=== PATIENT | male | born 1980 | race Caucasian/White ===

== ENCOUNTER 2017-09-18 14:43 | Emergency (ER) | payer OTHER, SELFPAY ==
[2017-09-18 14:53] VITALS: RESP 18; O2SAT 99
[2017-09-18] MEDS ORDERED: Sodium Chloride 0.9% 1,000 ML IV STA (15:07)
--- NOTE | 2017-09-18 15:09 | ED PDOC ---
HPI: Male Pain Time Seen by Provider: 09/18/17 15:07 Chief Complaint (Nursing): Male Genitourinary Chief Complaint (Provider): ABD PAIN History Per: Patient (36 Y/O MALE HERE FOR EVALUATION OF LEFT FLANK PAIN THAT BEGAN 1 PM TODAY WHILE SWIMMING. NOTES PAIN GRADUALLY WORSENING NOW ASSOCIATED WITH VOMITING. DENIES ANY DIARRHEA/FEVERS/CHILLS; DENIES ANY DYSURIA/HEMATURIA /URINARY FREQUENCY. DENIES ANY SURGICAL HX.) Past Medical History Reviewed: Historical Data, Nursing Documentation, Vital Signs Vital Signs: Last Vital Signs Temp 98 F 09/18/17 14:50 Pulse 66 09/18/17 14:50 Resp 18 09/18/17 14:50 BP 146/95 H 09/18/17 14:50 Pulse Ox 99 09/18/17 14:50 - Medical History PMH: Denies: HIV, Chronic Kidney Disease - Family History Family History: States: [place] (paternal at age 60) - Immunization History Hx Tetanus Toxoid Vaccination: No Hx Influenza Vaccination: No Hx Pneumococcal Vaccination: No - Home Medications Home Medications: Ambulatory Orders Medication Instructions Recorded Ciprofloxacin HCl [Cipro] 500 mg PO BID #14 tablet 09/18/17 Ibuprofen [Motrin] 600 mg PO Q8 PRN #21 tab 09/18/17 Ondansetron [Zofran Odt] 4 mg PO Q8 PRN #10 odt 09/18/17 Tamsulosin HCl [Flomax] 0.4 mg PO DAILY #10 cap.er.24h 09/18/17 oxyCODONE/Acetaminophen [Percocet 1 ea PO Q6 PRN #10 tab 09/18/17 5/325 mg Tab] - Allergies Allergies/Adverse Reactions: Allergies Allergy/AdvReac Type Severity Reaction Status Date / Time No Known Allergies Allergy Verified 09/18/17 14:57 Review of Systems ROS Statement: Except As Marked, All Systems Reviewed And Found Negative Physical Exam - Reviewed Nursing Documentation Reviewed: Yes Vital Signs Reviewed: Yes - Physical Exam Appears: Positive for: Well, Non-toxic, No Acute Distress Head Exam: Positive for: ATRAUMATIC, NORMAL INSPECTION, NORMOCEPHALIC Skin: Positive for: Normal Color, Warm, DRY Eye Exam: Positive for: EOMI, Normal appearance, PERRL ENT: Positive for: Normal ENT Inspection Neck: Positive for: Normal, Painless ROM Cardiovascular/Chest: Positive for: Regular Rate, Rhythm Respiratory: Positive for: CNT, Normal Breath Sounds Gastrointestinal/Abdominal: Positive for: Normal Exam, Soft, Tenderness (LUQ/ LEFT FLANK) Back: Positive for: Normal Inspection, L CVA Tenderness Extremity: Positive for: Normal ROM Neurologic/Psych: Positive for: Alert, Oriented - Laboratory Results Result Diagrams: 09/18/17 15:20 09/18/17 15:20 - ECG O2 Sat by Pulse Oximetry: 99 - Progress ED Course And Treament: CT abd/pelvis: IMPRESSION: Mild left obstructive uropathy caused by 0.3 cm calculus at the level of L4. Several additional nonobstructing left renal calculi. Thank you for allowing us to participate in the care of your patient. Dictated and Authenticated by: Rachana Garcia MD 09/18/2017 4:49 PM Eastern Time ([place] & [place]) toradol 15 mg iv x 1 dose Zofran 4 mg odt x 1 dose Flomax 0.4mg x 1 dose NS 1 liter wide open. Disposition - Clinical Impression Clinical Impression: Renal colic - Patient ED Disposition Is Patient to be Admitted: No - Disposition Referrals: Scarlett Ruhs MD [Medical Doctor] - Disposition: Routine/Home Disposition Time: 18:26 Condition: FAIR Prescriptions: Ciprofloxacin HCl [Cipro] 500 mg PO BID #14 tablet Ibuprofen [Motrin] 600 mg PO Q8 PRN #21 tab PRN Reason: Pain, Moderate (4-7) Ondansetron [Zofran Odt] 4 mg PO Q8 PRN #10 odt PRN Reason: Nausea/Vomiting oxyCODONE/Acetaminophen [Percocet 5/325 mg Tab] 1 ea PO Q6 PRN #10 tab PRN Reason: Pain, Severe (8-10) Tamsulosin HCl [Flomax] 0.4 mg PO DAILY #10 cap.er.24h Instructions: Renal Colic (DC) Forms: [facility] ED School/Work Excuse Print Language: RUSSIAN
[2017-09-18 15:39] LABS: BASO # 0.1 K/uL (0.0-0.2); BASO % 0.4 % (0.0-2.0); EOS # 0.1 K/uL (0.0-0.7); EOS % 0.5 % (0.0-4.0); HEMOGLOBIN 15.1 g/dL (12.0-18.0); LYMPH # 1.4 K/uL (1.0-4.3); LYMPH % 11.1 % (20.0-40.0); MEAN CELL VOLUME 92.3 fl (80.0-94.0); MEAN CORPUSCULAR HEMOGLOBIN 30.9 pg (27.0-31.0); MEAN CORPUSCULAR HGB CONC 33.4 g/dL (33.0-37.0); MEAN PLATELET VOLUME 8.5 fl (7.2-11.7); MONO # 0.5 K/uL (0.0-0.8); MONO % 3.8 % (0.0-10.0); NEUT # 10.7 K/uL (1.8-7.0); NEUT % 84.2 % (50.0-75.0); RBC 4.89 Mil/uL (4.40-5.90); WHITE BLOOD COUNT 12.8 K/uL (4.8-10.8)
[2017-09-18 15:46] LABS: CALCIUM 9.4 mg/dL (8.4-10.2); GFR AFRICAN-AMERICAN > 60; GFR NON-AFRICAN AMERICAN > 60; LIPASE 63 U/L (23-300)
[2017-09-18 15:53] LABS: ALB/GLOB RATIO 1.2 (1.0-2.1); ALBUMIN 4.5 g/dL (3.5-5.0); ALT/SGPT 31 U/L (21-72); AST/SGOT 48 U/L (17-59); BLOOD UREA NITROGEN 17 mg/dl (9-20)
[2017-09-18 16:14] LABS: URINE BILIRUBIN NEGATIVE (NEGATIVE); URINE BLOOD LARGE (NEGATIVE); URINE CLARITY CLOUDY (Clear); URINE COLOR YELLOW (YELLOW); URINE GLUCOSE (UA) NEG (Normal); URINE LEUKOCYTE ESTERASE NEG Leu/uL (Negative); URINE PROTEIN 30 mg/dL (NEGATIVE); URINE UROBILINOGEN 0.2-1.0 mg/dL (0.2-1.0)
[2017-09-18 18:50] VITALS: BP 140/89; PULSE 64; TEMP 98.7
--- NOTE | 2017-09-19 08:34 | CT ---
PROCEDURE: CT Abdomen and Pelvis without intravenous contrast HISTORY: R/O KIDNEY STONE COMPARISON: None. TECHNIQUE: Without contrast.. Contrast dose: 0 Radiation dose: Total exam DLP = 517.61 mGy-cm. This CT exam was performed using one or more of the following dose reduction techniques: Automated exposure control, adjustment of the mA and/or kV according to patient size, and/or use of iterative reconstruction technique. FINDINGS: LOWER THORAX: Unremarkable. LIVER: Unremarkable. No gross lesion or ductal dilatation. GALLBLADDER AND BILE DUCTS: Unremarkable. PANCREAS: Unremarkable. No gross lesion or ductal dilatation. SPLEEN: Unremarkable. ADRENALS: Unremarkable. No mass. KIDNEYS AND URETERS: Minimal left hydronephrosis. Proximal left ureteral 3 mm calculus. Bilateral incidental extrarenal renal pelvis. Multiple very small nonobstructing left renal calculi. No right renal or ureteral calculus. No renal mass. VASCULATURE: Unremarkable. No aortic aneurysm. BOWEL: Unremarkable. No obstruction. No gross mural thickening. APPENDIX: Unremarkable. Normal appendix. PERITONEUM: Unremarkable. No free fluid. No free air. LYMPH NODES: Unremarkable. No enlarged lymph nodes. BLADDER: Unremarkable. REPRODUCTIVE: Normal prostate BONES: Normal prostate OTHER FINDINGS: None. IMPRESSION: Obstructing 3 mm proximal left ureteral calculus with minimal left hydronephrosis. Multiple small nonobstructing left renal calculi. No additional abnormality. Preliminary interpretation of this examination was reported by [facility] at 4:49 p.m. on 09/18/2017. There is concurrence of this report with the preliminary interpretation.
== END 2017-09-18 18:51 | disposition home or self-care (01) ==
LOC: H.ER 14:43
DX: N13.2 Hydronephrosis with renal and ureteral calculous obstruction (principal)
CPT/HCPCS: 74176; 80053; 81003; 83690; 85025; 87086; 96361; 96374; 99284; J1885; J7030

== ENCOUNTER 2018-05-01 16:26 | Emergency (ER) | payer SELFPAY ==
[2018-05-01 17:32] VITALS: BP 127/75; PULSE 72; RESP 18; TEMP 98.1; O2SAT 100
--- NOTE | 2018-05-01 19:04 | ED PDOC ---
HPI: Abdomen Time Seen by Provider: 05/01/18 18:49 Chief Complaint (Nursing): Abdominal Pain History Per: Patient History/Exam Limitations: no limitations Onset/Duration Of Symptoms: Days (1) Current Symptoms Are (Timing): Better Severity: Moderate Pain Scale Rating Of: 4 Location Of Pain/Discomfort: LLQ, Other (Left flank pain) Associated Symptoms: denies: Fever, Chills, Nausea, Vomiting, Diarrhea, Urinary Symptoms Exacerbating Factors: None Alleviating Factors: None Last Bowel Movement: Today Additional History Per: Patient Additional Complaint(s): Patient presenting with left flank pain since this am. Radiated to LLQ pain. Denies any chest pain, dysuria, or fevers. Reports similar to previous hx of kidney stones. Past Medical History Reviewed: Historical Data, Nursing Documentation, Vital Signs Vital Signs: Last Vital Signs Temp 98.1 F 05/01/18 17:31 Pulse 72 05/01/18 17:31 Resp 18 05/01/18 17:31 BP 127/75 05/01/18 17:31 Pulse Ox 100 05/01/18 17:31 - Medical History PMH: Denies: HIV, Chronic Kidney Disease Other PMH: Nephrolothiasis - Surgical History Surgical History: No Surg Hx - Family History Family History: States: [place] (paternal at age 60) - Immunization History Hx Tetanus Toxoid Vaccination: No Hx Influenza Vaccination: No Hx Pneumococcal Vaccination: No - Home Medications Home Medications: Ambulatory Orders Medication Instructions Recorded Ibuprofen [Motrin] 600 mg PO Q8 PRN #21 tab 09/18/17 Ondansetron [Zofran Odt] 4 mg PO Q8 PRN #10 odt 09/18/17 Ciprofloxacin HCl [Cipro] 500 mg PO BID #14 tablet 05/01/18 Tamsulosin HCl [Flomax] 0.4 mg PO DAILY #10 cap.er.24h 05/01/18 oxyCODONE/Acetaminophen [Percocet 1 ea PO Q6 PRN #10 tab 05/01/18 5/325 mg Tab] - Allergies Allergies/Adverse Reactions: Allergies Allergy/AdvReac Type Severity Reaction Status Date / Time No Known Allergies Allergy Verified 05/01/18 17:31 Review of Systems ROS Statement: Except As Marked, All Systems Reviewed And Found Negative Physical Exam - Reviewed Nursing Documentation Reviewed: Yes Vital Signs Reviewed: Yes - Physical Exam Appears: Positive for: Non-toxic, No Acute Distress Head Exam: Positive for: ATRAUMATIC, NORMAL INSPECTION Skin: Positive for: Normal Color, Warm Eye Exam: Positive for: EOMI ENT: Positive for: Normal ENT Inspection Cardiovascular/Chest: Positive for: Regular Rate, Rhythm Respiratory: Positive for: Normal Breath Sounds. Negative for: Respiratory Distress Gastrointestinal/Abdominal: Positive for: Soft, Tenderness (LLQ ). Negative for: Distended, Guarding, Rebound Back: Positive for: L CVA Tenderness. Negative for: R CVA Tenderness Extremity: Positive for: Normal ROM Neurologic/Psych: Positive for: Alert, Oriented - Laboratory Results Result Diagrams: 05/01/18 19:37 05/01/18 19:37 - ECG O2 Sat by Pulse Oximetry: 100 - Progress Re-evaluation Time: 23:34 Condition: Re-examined, Improved Medical Decision Making Medical Decision Making: Impression Left flank pain Diff include Left renal colic with nephrolithiasis, UTI Plan Labs CT abdomen UA Toradol IV reassess Time: 2135 CT RESULTS FINDINGS: LUNG BASES: The lung bases appear clear. No pleural effusions are seen. LIVER: There is slight hepatomegaly. The liver measured approximately 16.8 cm in the midclavicular line. GALLBLADDER AND BILE DUCTS: The gallbladder appears within normal limits. No radioopaque gallstones are seen. No biliary ductal dilatation is evident. PANCREAS: Unremarkable. SPLEEN: Unremarkable. ADRENAL GLANDS: Unremarkable. KIDNEYS, URETERS, AND BLADDER: Both kidneys are normal in size and position. A punctate non-obstructing calculus is seen in the mid right renal pole. Multiple punctate non-obstructing calculi are scattered within the left kidney. An approximately 2.5 mm obstructing calculus is seen within the proximal left ureter. This creates associated mild-moderate left hydronephrosis with left perinephric stranding. The urinary bladder is normal in size and configuration. STOMACH AND BOWEL: Some mucosal wall thickening is seen in the lower esophagus at the esophagogastric junction which may indicate reflux esophagitis. Unremarkable appearance of the stomach. No evidence of bowel obstruction. No evidence suggesting enteritis or colitis. APPENDIX: No evidence of acute appendicitis on CT examination. PERITONEUM: No free fluid. No free air. LYMPH NODES: No lymphadenopathy is evident. REPRODUCTIVE: Unremarkable as visualized. VASCULATURE: No evidence of abdominal aortic aneurysm. BONES: No aggressive appearing osseous lesion. No acute osseous pathology evident. Vacuum disc phenomenon and mild disc interspace narrowing are noted at L5-S1 consistent with some degenerative disc disease. IMPRESSION: 1. An obstructing 2.5 mm calculus is noted within the proximal left ureter. This creates associated mild-moderate left hydronephrosis and perinephric stranding. 2. Multiple punctate non-obstructing calculi scattered within the left kidney and solitary punctate nonobstructing calculus in the mid right renal pole. 3. Evidence of reflux esophagitis at the esophagogastric junction. 4. Evidence of some degenerative disc disease at L5-S1. [address] Galvez who recommends KUB xray and discharge if patient is pain free. Also recommends flomax and cipro and follow up. Patient has no pain and wishes to go home. Instructed to return within 24 hours of pain continues and follow up with urologist. Electronically signed on May 01, 2018 8:36:25 PM EST by: Manuel Gill M.D., MBA Certified By ABR & CBCCT Fellowship Trained MRI and CT Specialist Disposition - Clinical Impression Clinical Impression: Renal colic, Left ureteral stone - Patient ED Disposition Is Patient to be Admitted: No Doctor Will See Patient In The: Office Counseled Patient/Family Regarding: Studies Performed, Diagnosis, Need For Followup - Disposition Referrals: [facility] [place] [Outside] Jaren Galvez MD [Medical Doctor] - Disposition: Routine/Home Disposition Time: 23:38 Condition: GOOD Additional Instructions: RETA OLIVER, thank you for letting us take care of you today. Your provider was Jonathon Overton MD and you were treated for ABD PAIN. The emergency medical care you received today was directed at your acute symptoms. If you were prescribed any medication, please fill it and take as directed. It may take several days for your symptoms to resolve. Return to the Emergency Department if your symptoms worsen, do not improve, or if you have any other problems. Please contact your doctor or call one of the physicians/clinics you have been referred to that are listed on the Patient Visit Information form that is included in your discharge packet. Bring any paperwork you were given at discharge with you along with any medications you are taking to your follow up visit. Our treatment cannot replace ongoing medical care by a primary care provider outside of the emergency department. Thank you for allowing the [facility] team to be part of your care today. If you had an X-Ray or CT scan: A Radiologist will review the ED reading if any change in treatment is needed we will contact you. If you had a blood, urine, or wound culture: It will take several days for the results, if any change in treatment is needed we will contact you. If you had an STI test: It will take 48 hours for the results. Please call after 1 week if you have not heard back. Prescriptions: Ciprofloxacin HCl [Cipro] 500 mg PO BID #14 tablet oxyCODONE/Acetaminophen [Percocet 5/325 mg Tab] 1 ea PO Q6 PRN #10 tab PRN Reason: Pain, Severe (8-10) Tamsulosin HCl [Flomax] 0.4 mg PO DAILY #10 cap.er.24h Instructions: Renal Colic Forms: [employer] ([employer]) Print Language: PORTUGUESE
[2018-05-01 19:52] LABS: BASO % 0.3 % (0.0-2.0); HEMOGLOBIN 14.7 g/dL (12.0-18.0); MEAN CELL VOLUME 90.6 fl (80.0-94.0); MEAN CORPUSCULAR HEMOGLOBIN 30.3 pg (27.0-31.0); MEAN CORPUSCULAR HGB CONC 33.4 g/dL (33.0-37.0); MEAN PLATELET VOLUME 8.2 fl (7.2-11.7); MONO # 0.5 K/uL (0.0-0.8); MONO % 3.6 % (0.0-10.0); NEUT # 12.2 K/uL (1.8-7.0); NEUT % 89.1 % (50.0-75.0); NRBC % 0.2 % (0.0-0.0); PLATELET COUNT 274 K/uL (130-400); RBC 4.86 Mil/uL (4.40-5.90); RED CELL DISTRIBUTION WIDTH 12.9 % (11.5-14.5); WHITE BLOOD COUNT 13.7 K/uL (4.8-10.8)
[2018-05-01 21:07] LABS: BANDS 1 % (0-2); EOSINOPHIL 1 % (0-7); LYMPHOCYTE 7 % (20-50); MONOCYTE 5 % (0-10); NEUTROPHIL 86 % (42-75); PLATELET ESTIMATE NORMAL (NORMAL); TOTAL CELLS COUNTED 100
[2018-05-01 21:37] LABS: SQUAMOUS EPITHIAL < 1 /hpf (0-5); URINE BILIRUBIN NEGATIVE (NEGATIVE); URINE CLARITY CLEAR (Clear); URINE COLOR YELLOW (YELLOW); URINE GLUCOSE (UA) NEG (NEGATIVE); URINE LEUKOCYTE ESTERASE NEG Leu/uL (Negative); URINE PROTEIN NEGATIVE (NEGATIVE); URINE UROBILINOGEN 0.2-1.0 mg/dL (0.2-1.0)
[2018-05-01 21:40] LABS: URINE BLOOD SMALL (NEGATIVE)
[2018-05-01] MEDS ORDERED: cefTRIAXone (Rocephin) 1 gm Inj IM ONE (23:07)
--- NOTE | 2018-05-02 08:36 | RAD ---
Date of service: 05/01/2018 HISTORY: left flank pain COMPARISON: Unenhanced abdomen and pelvis CT 05/01/2018. FINDINGS: BOWEL: Normal. No obstruction. No free air. BONES: Normal. OTHER FINDINGS: A small calcification is seen lateral to the left transverse process of the L4 vertebral body corresponding to obstructing calculus in the left ureter in abdomen pelvis CT 05/01/2018. Calculus appears not significantly changed in position. No additional radiodense urolithiasis identified in the abdomen though phlebolith like calcifications identified at the inferior pelvis soft tissue, also identified in prior CT. IMPRESSION: Small calculus identified lateral to the left L4 transverse process corresponding to mid left ureteral calculus obstructing left kidney and ureter, not significantly changed in position. Nonobstructive bowel gas pattern.
--- NOTE | 2018-05-02 12:58 | CT ---
Date of service: 05/01/2018 PROCEDURE: CT Abdomen and Pelvis without intravenous contrast HISTORY: left flank pain LLQ pain COMPARISON: Abdomen pelvis CT without contrast 09/18/2017. TECHNIQUE: Helical CT of the abdomen and pelvis was performed without oral or intravenous contrast as per referring physician request. Coronal and sagittal reformats were generated. Contrast dose: None Radiation dose: Total exam DLP = 505.45 mGy-cm. This CT exam was performed using one or more of the following dose reduction techniques: Automated exposure control, adjustment of the mA and/or kV according to patient size, and/or use of iterative reconstruction technique. FINDINGS: LOWER THORAX: Unremarkable. LIVER: Unremarkable. No gross lesion or ductal dilatation. GALLBLADDER AND BILE DUCTS: Unremarkable. PANCREAS: Unremarkable. No gross lesion or ductal dilatation. SPLEEN: Unremarkable. ADRENALS: Unremarkable. No mass. KIDNEYS AND URETERS: [id number] left hydroureteronephrosis is identified caused by a 3.5 mm calculus obstructing the proximal left ureter at the upper L4 level of the left ureter. A slightly smaller calculus was identified in nearly the same location of the left ureter on 09/18/[address] Presumably this is a recurrent obstruction although chronic obstruction is not completely excluded. Moderate left perinephric reaction is identified. A punctate intrarenal calculus identified at the upper pole as well as midpole right kidney and possibly also a additional focus at the lower pole. There multiple punctate intrarenal calculi identified the upper mid lower pole left kidney number at least 4-5. VASCULATURE: Unremarkable. No aortic aneurysm. No aortic atherosclerotic calcification or mural plaque present. BOWEL: A moderate amount of retained fecal material is seen at the proximal and mid large-bowel segments with a minimal volume at the distal segment. No small or large bowel obstruction appreciable. No suspicious acute bowel findings. APPENDIX: Unremarkable. Normal appendix. PERITONEUM: Unremarkable. No free fluid. No free air. LYMPH NODES: Unremarkable. No enlarged lymph nodes. BLADDER: Urinary bladder is mildly distended with a thin smooth wall. No radiodense urolithiasis associated. REPRODUCTIVE: Unremarkable. BONES: Minimal spondylolisthesis L5 posterior to S1, degenerative. No spondylolysis identified. OTHER FINDINGS: None. IMPRESSION: 1. 3.5 mm calculus obstructs the proximal left ureter at the L4 level causing [id number] left hydroureteronephrosis. Similar presentation on prior CT 09/18/2017 though this is likely recurrence rather than chronic. Clinically correlate further. 2. Multiple punctate intrarenal calculi scattered at the left greater than right kidney, nonobstructive. No right-sided obstructive uropathy. 3. Distended but otherwise unremarkable appearing urinary bladder. Preliminary report provided by Bhavin, 05/01/2018, 8:26 p.m..
== END 2018-05-01 23:46 | disposition home or self-care (01) ==
LOC: H.ER 16:26
DX: N13.2 Hydronephrosis with renal and ureteral calculous obstruction (principal); K21.0 Gastro-esophageal reflux disease with esophagitis
CPT/HCPCS: 74018; 74176; 80048; 81003; 85025; 96372; 96374; 99283; J0696; J1885

== ENCOUNTER 2018-05-06 09:41 | Emergency (ER) | payer OTHER ==
[2018-05-06 09:44] VITALS: PULSE 70; RESP 18
[2018-05-06] MEDS ORDERED: Sodium Chloride 0.9% 1,000 ML IV STA (10:34)
[2018-05-06 11:21] LABS: BASO % 0.7 % (0.0-2.0); EOS # 0.1 K/uL (0.0-0.7); EOS % 1.1 % (0.0-4.0); HEMOGLOBIN 14.1 g/dL (12.0-18.0); LYMPH # 1.4 K/uL (1.0-4.3); LYMPH % 20.1 % (20.0-40.0); MEAN CELL VOLUME 90.6 fl (80.0-94.0); MEAN CORPUSCULAR HGB CONC 34.2 g/dL (33.0-37.0); MEAN PLATELET VOLUME 8.3 fl (7.2-11.7); MONO # 0.7 K/uL (0.0-0.8); MONO % 10.2 % (0.0-10.0); NEUT # 4.8 K/uL (1.8-7.0); NEUT % 67.9 % (50.0-75.0); NRBC % 0.1 % (0.0-0.0); RBC 4.55 Mil/uL (4.40-5.90); RED CELL DISTRIBUTION WIDTH 12.4 % (11.5-14.5); WHITE BLOOD COUNT 7.1 K/uL (4.8-10.8)
[2018-05-06 11:27] LABS: ALB/GLOB RATIO 1.3 (1.0-2.1); ALBUMIN 4.5 g/dL (3.5-5.0); CALCIUM 9.7 mg/dL (8.4-10.2)
[2018-05-06 12:55] LABS: SQUAMOUS EPITHIAL 2 /hpf (0-5); URINE BACTERIA OCC (<OCC); URINE BILIRUBIN NEGATIVE (NEGATIVE); URINE BLOOD SMALL (NEGATIVE); URINE CLARITY CLEAR (Clear); URINE COLOR YELLOW (YELLOW); URINE GLUCOSE (UA) NEG (NEGATIVE); URINE LEUKOCYTE ESTERASE NEG Leu/uL (Negative); URINE PROTEIN NEGATIVE (NEGATIVE); URINE UROBILINOGEN 0.2-1.0 mg/dL (0.2-1.0)
--- NOTE | 2018-05-06 14:15 | ED PDOC ---
HPI: Abdomen Time Seen by Provider: 05/06/18 10:31 Chief Complaint (Nursing): Abdominal Pain Chief Complaint (Provider): Flank Pain (recurrent) History Per: Patient History/Exam Limitations: no limitations Onset/Duration Of Symptoms: Days (five to six ) Outside of [place] travel?: No Current Symptoms Are (Timing): Still Present Severity: Mild Location Of Pain/Discomfort: Other (left flank pain) Additional Complaint(s): Pt presents the second time complaining of flank pain which is attributable to a renal stone; pt was given pain medication, a referral to a urologist and a urine hat/strainer. Pt presents today compaining of continuing pain for which he no longer has pain medication. Pt is still passing urine and denie hematuria, NVD and fever Past Medical History Reviewed: Historical Data, Nursing Documentation, Vital Signs Vital Signs: Last Vital Signs Temp 98.4 F 05/06/18 09:43 Pulse 70 05/06/18 09:43 Resp 18 05/06/18 09:43 BP 152/91 H 05/06/18 09:43 Pulse Ox 99 05/06/18 09:43 - Medical History PMH: Denies: HIV, Chronic Kidney Disease - Family History Family History: States: Unknown Family Hx, [place] (paternal at age 60) - Immunization History Hx Tetanus Toxoid Vaccination: No Hx Influenza Vaccination: No Hx Pneumococcal Vaccination: No - Home Medications Home Medications: Ambulatory Orders Medication Instructions Recorded Ibuprofen [Motrin] 600 mg PO Q8 PRN #21 tab 09/18/17 Ondansetron [Zofran Odt] 4 mg PO Q8 PRN #10 odt 09/18/17 Ciprofloxacin HCl [Cipro] 500 mg PO BID #14 tablet 05/01/18 Tamsulosin HCl [Flomax] 0.4 mg PO DAILY #10 cap.er.24h 05/01/18 oxyCODONE/Acetaminophen [Percocet 1 ea PO Q6 PRN #10 tab 05/01/18 5/325 mg Tab] oxyCODONE/Acetaminophen [Percocet 1 tab PO PRN PRN #4 tab 05/06/18 5/325 mg Tab] - Allergies Allergies/Adverse Reactions: Allergies Allergy/AdvReac Type Severity Reaction Status Date / Time No Known Allergies Allergy Verified 05/06/18 10:16 Review of Systems Musculoskeletal: Positive for: Back Pain Physical Exam - Reviewed Nursing Documentation Reviewed: Yes - Physical Exam Appears: Positive for: Well, No Acute Distress, Uncomfortable Head Exam: Positive for: ATRAUMATIC, NORMAL INSPECTION Skin: Positive for: Normal Color, Warm, Dry. Negative for: Diaphoresis, Pallor, Rash Eye Exam: Positive for: Normal appearance, PERRL. Negative for: Nystagmus, Periorbital swelling, Periorbital tenderness ENT: Positive for: Normal ENT Inspection Neck: Positive for: Normal, Painless ROM, Supple. Negative for: Decreased ROM Cardiovascular/Chest: Positive for: Regular Rate, Rhythm Respiratory: Positive for: Normal Breath Sounds Pulses-Carotid (L): 2+ Pulses-Carotid (R): 2+ Pulses-Radial (L): 2+ Pulses-Radial (R): 2+ Back: Positive for: Normal Inspection, L CVA Tenderness. Negative for: R CVA Tenderness - Laboratory Results Result Diagrams: 05/06/18 11:02 05/06/18 11:02 Lab Results: Total Bilirubin 0.7 mg/dl (0.2-1.3) 05/06/18 11:02 AST 34 U/L (17-59) 05/06/18 11:02 ALT 31 U/L (21-72) 05/06/18 11:02 Alkaline Phosphatase 93 U/L (38-126) 05/06/18 11:02 Total Protein 8.0 G/DL (6.3-8.2) 05/06/18 11:02 Albumin 4.5 g/dL (3.5-5.0) 05/06/18 11:02 Globulin 3.5 gm/dL (2.2-3.9) 05/06/18 11:02 Albumin/Globulin Ratio 1.3 (1.0-2.1) 05/06/18 11:02 Urine Color Yellow (YELLOW) 05/06/18 12:23 Urine Clarity Clear (Clear) 05/06/18 12:23 Urine pH 7.0 (5.0-8.0) 05/06/18 12:23 Ur Specific [place] 1.012 (1.003-1.030) 05/06/18 12:23 Urine Protein Negative mg/dL (NEGATIVE) 05/06/18 12:23 Urine Glucose (UA) Neg mg/dL (NEGATIVE) 05/06/18 12:23 Urine Ketones Negative mg/dL (NEGATIVE) 05/06/18 12:23 Urine Blood Small (NEGATIVE) 05/06/18 12:23 Urine Nitrate Negative (NEGATIVE) 05/06/18 12:23 Urine Bilirubin Negative (NEGATIVE) 05/06/18 12:23 Urine Urobilinogen 0.2-1.0 mg/dL (0.2-1.0) 05/06/18 12:23 Ur Leukocyte Esterase Neg Mando/uL (Negative) 05/06/18 12:23 Urine RBC (Auto) 8 /hpf (0-3) H 05/06/18 12:23 Urine Microscopic WBC 1 /hpf (0-5) 05/06/18 12:23 Ur Squamous Epith Cells 2 /hpf (0-5) 05/06/18 12:23 Urine Bacteria Occ (<OCC) H 05/06/18 12:23 - ECG O2 Sat by Pulse Oximetry: 99 Medical Decision Making Medical Decision Making: R/O Hydronephrosis P: US Renal for diagnostics Date of service: 05/06/2018 PROCEDURE: HISTORY: r/o hydro left side COMPARISON: TECHNIQUE: FINDINGS: The right left kidney measure 10.113.0 centimeters respectively. There is a 5 millimeter interpolar echogenic focus probably representing calculus. Mild left hydronephrosis. IMPRESSION: Mild left hydronephrosis. 5 millimeter probable right renal calculus.R/O As there is no hydronephrosis, pt will be discharged Pt is stable Disposition - Clinical Impression Clinical Impression: Abdominal discomfort, Stone in kidney - Patient ED Disposition Is Patient to be Admitted: No Doctor Will See Patient In The: Office Counseled Patient/Family Regarding: Diagnosis, Need For Followup, Rx Given - Disposition Referrals: Jaren Galvez MD [Medical Doctor] - Disposition: Routine/Home Disposition Time: 14:49 Condition: STABLE Prescriptions: oxyCODONE/Acetaminophen [Percocet 5/325 mg Tab] 1 tab PO PRN PRN #4 tab PRN Reason: Pain, Moderate (4-7) Instructions: Kidney Stones in Adults, Flank Pain (DC), Renal Colic, Kidney Stones (DC), How to Strain Your Urine Forms: [employer] (E[place]ian)
--- NOTE | 2018-05-06 14:36 | US ---
Date of service: 05/06/2018 PROCEDURE: HISTORY: r/o hydro left side COMPARISON: TECHNIQUE: FINDINGS: The right left kidney measure 10.113.0 centimeters respectively. There is a 5 millimeter interpolar echogenic focus probably representing calculus. Mild left hydronephrosis. IMPRESSION: Mild left hydronephrosis. 5 millimeter probable right renal calculus.
[2018-05-06 15:17] VITALS: BP 140/80; TEMP 98; O2SAT 100
== END 2018-05-06 15:15 | disposition short-term general hospital (02) ==
LOC: H.ER 09:41
DX: R10.9 Unspecified abdominal pain (principal); N20.0 Calculus of kidney
CPT/HCPCS: 76770; 80053; 81003; 85025; 96361; 96374; 99284; J1885; J7030